=== PATIENT | male | born 1975 | race Caucasian/White ===

== ENCOUNTER 2022-03-30 19:04 | Inpatient (IN) | payer MEDICARE, MEDICAID, SELFPAY ==
[2022-03-30 19:39] VITALS: BP 127/78; PULSE 88; RESP 18; TEMP 36.7; O2SAT 97
[2022-03-30 19:42] VITALS: BMI 26.4
[2022-03-30] MEDS: trazodone 50 mg Tablet PO (20:14)
[2022-03-31 06:00] VITALS: BP 124/70; PULSE 56; RESP 20; TEMP 36.5; O2SAT 96
[2022-03-31 14:00] VITALS: BP 158/56; PULSE 80; RESP 16; TEMP 36.5; O2SAT 91
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
[2022-03-31 19:57] VITALS: BP 156/70; PULSE 66; RESP 20; TEMP 36.9; O2SAT 95
[2022-03-31 22:00] VITALS: BP 156/70; PULSE 66; RESP 20; TEMP 36.9; O2SAT 95
[2022-04-01 06:00] VITALS: BP 133/64; PULSE 63; RESP 20; TEMP 36.6; O2SAT 98
[2022-04-01] MEDS: risperiDONE 1 mg Tablet 0.5 MG PO (08:43)
[2022-04-01 14:00] VITALS: BP 120/66; PULSE 60; RESP 15; TEMP 36.8; O2SAT 97
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
[2022-04-01 18:38] VITALS: BP 142/63; PULSE 57; RESP 15; TEMP 36.6; O2SAT 96
[2022-04-01] MEDS: trazodone 50 mg Tablet PO (20:06)
[2022-04-02 06:00] VITALS: BP 116/75; PULSE 75; RESP 16; TEMP 36.6; O2SAT 99
[2022-04-02] MEDS: fixodent 39 gm Tube 1 APPLIC DENTAL (07:51)
[2022-04-02] MEDS: risperiDONE 1 mg Tablet 0.5 MG PO (09:15)
[2022-04-02 11:23] VITALS: BP 116/75; PULSE 75; RESP 16; TEMP 36.6; O2SAT 99
--- NOTE | 2022-04-02 12:12 | DCPLANNER ---
Imm was given to pt and rights explained. Copy placed in file.
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
[2022-04-02 13:47] VITALS: BP 137/71; PULSE 72; RESP 18; TEMP 36.7; O2SAT 96
--- NOTE | 2022-04-02 13:53 | PC.NURSE ---
pt requested med be transferred to [facility] in [place], [place] [phone]...this nurse contacted [facility], asked them to please call [facility] employee pharmacy @ [phone], request discharge med be transferred
[2022-04-02 14:18] VITALS: BP 137/71; PULSE 72; RESP 18; TEMP 36.7; O2SAT 96
[2022-04-02] MEDS: nicotine 2 mg Gum BUCCAL (15:24)
== END 2022-04-02 17:17 | disposition home or self-care (01) | DRG 886 ==
PROVIDERS: Admitting Provider Psychiatry & Neurology Psychiatry; PCP Specialist; Visit Provider Psychiatry & Neurology Psychiatry
DX: F63.9 Impulse disorder, unspecified (principal); R45.851 Suicidal ideations; Z87.820 Personal history of traumatic brain injury; R47.1 Dysarthria and anarthria
CPT/HCPCS: 97150; 97165

== ENCOUNTER → 2022-06-19 08:35 | Outpatient (BNVA) | payer MEDICARE, MEDICAID, SELFPAY | PROVIDERS: PCP Specialist; Visit Provider Student in an Organized Health Care Education/Training Program | DX: V19.9XXA Pedal cyclist (driver) (passenger) injured in unspecified traffic accident, initial encounter (principal); S42.001A Fracture of unspecified part of right clavicle, initial encounter for closed fracture | CPT/HCPCS: 23500; 73000; 99203 ==

== ENCOUNTER 2023-04-03 17:04 | Inpatient (IN) | payer MEDICARE, MEDICAID, SELFPAY ==
[2023-04-03 17:12] VITALS: BMI 26.4
[2023-04-03 17:15] VITALS: BP 150/72; PULSE 104; RESP 16; TEMP 36.8; O2SAT 98
[2023-04-03] MEDS: fixodent 39 gm Tube 1 APPLIC DENTAL (17:54)
[2023-04-03 20:00] VITALS: BP 114/61; PULSE 82; RESP 18; TEMP 36.6; O2SAT 93
[2023-04-04 06:00] VITALS: BP 119/72; PULSE 67; RESP 18; O2SAT 97
[2023-04-04] MEDS: fixodent 39 gm Tube 1 APPLIC DENTAL (07:18)
--- NOTE | 2023-04-04 08:06 | PC.NURSE ---
During morning assessment, patient stated that I can't drive, i can't do shit . Patient said that he has had enough and wants to walk out in front of a semi. Patient says that if he could drive, then things would be better. He can't drive because he has warrants. The last time he had a license was 20 years ago. Denies AVH, anxiety, and depression.
[2023-04-04] MEDS: hyDROXYzine 25 mg Capsule 50 MG PO (08:14)
--- NOTE | 2023-04-04 12:00 | PC.NURSE ---
Patient agitated this morning, talking on the phone with a friend. Patient pacing, walking back and forth from phone to nurse, voice raised in frustration. This nurse administered Vistaril 50mg PO. Within an hour, patient stated that he is feeling better.
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
[2023-04-04 14:00] VITALS: BP 115/62; PULSE 54; RESP 17; TEMP 37; O2SAT 94
[2023-04-04 19:58] VITALS: BP 129/61; PULSE 60; RESP 18; O2SAT 95
[2023-04-05 06:00] VITALS: BP 109/58; PULSE 49; RESP 18; O2SAT 97
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
[2023-04-05 13:43] VITALS: BP 109/58; PULSE 49; RESP 18; O2SAT 97
== END 2023-04-05 14:00 | disposition home or self-care (01) | DRG 886 ==
PROVIDERS: Admitting Provider Psychiatry & Neurology Psychiatry; Visit Provider Psychiatry & Neurology Psychiatry
DX: F63.9 Impulse disorder, unspecified (principal); R45.851 Suicidal ideations; F32.A Depression, unspecified; Z87.820 Personal history of traumatic brain injury; F10.10 Alcohol abuse, uncomplicated; F15.90 Other stimulant use, unspecified, uncomplicated; Z59.00 Homelessness unspecified; F17.200 Nicotine dependence, unspecified, uncomplicated
CPT/HCPCS: 97150; 97165; 99238

== ENCOUNTER → 2024-03-31 08:24 | Outpatient (BNVA) | payer MEDICARE, SELFPAY | DX: Z13.6 Encounter for screening for cardiovascular disorders (principal); Z76.89 Persons encountering health services in other specified circumstances | CPT/HCPCS: 80053; 80061; 85025 ==

== ENCOUNTER 2024-07-10 13:01 | Emergency (ER) | payer MEDICARE, SELFPAY ==
--- NOTE | 2024-07-10 13:02 | XRR_ITS ---
PROCEDURE INFORMATION: Exam: XR Left Hand Exam date and time: 07/10/2024 1:27 PM Age: 48 years old Clinical indication: Injury or trauma; Other: Crushing; Hand; Left TECHNIQUE: Imaging protocol: Radiologic exam of the left hand. Views: 3 or more views. COMPARISON: No relevant prior studies available. FINDINGS: Bones/joints: There is mild ulnar angulation of the distal 5th finger at the proximal interphalangeal joint which is likely chronic. There is a nondisplaced fracture of the distal 5th phalangeal tuft. Distal 5th phalangeal tuft is exposed. There is mild chronic deformity of the 5th proximal interphalangeal joint. There is mild diffuse interphalangeal, metacarpophalangeal, and triscaphe osteoarthritis. Soft tissues: There is a deep soft tissue laceration in the distal 5th finger with partial amputation of the finger tip. XR/XR hand LT min 3V* [id number] IMPRESSION: 1. Acute nondisplaced fracture of the distal 5th phalangeal tuft. 2. Partial soft tissue amputation of the 5th finger tip.
[2024-07-10 13:11] VITALS: BP 125/72; PULSE 63; RESP 20; TEMP 36.6; O2SAT 98; BMI 27.1
[2024-07-10 13:33] VITALS: BP 134/76; PULSE 63; O2SAT 93
--- NOTE | 2024-07-10 13:36 | W.ED.EXTPRO ---
HPI - Extremity Problem General: Chief complaint: Extremity Injury, Upper Stated complaint: LT hand fingertip crushing injury Time Seen by Provider: 07/10/24 13:31 Source: patient Mode of arrival: ambulatory Limitations: no limitations History of Present Illness: 48-year-old male states that he injured his left pinky finger on a wood splitter roughly an hour ago he amputated the very distal tip of his left pinky finger. He is unsure when his last tetanus was rates his pain 3-10 currently denies any other injuries Associated symptoms: Deny chest pain, fever(s) or rash Related Data Previous Rx's Medication Instructions Recorded amoxicillin 500 mg-potassium 1 tab PO BID #14 tabs 07/10/24 clavulanate 125 mg tablet (Augmentin) hydrocodone 5 mg-acetaminophen 325 1 tab PO Q6H PRN pain #14 tabs 07/10/24 mg tablet Allergies Allergy/AdvReac Type Severity Reaction Status Date / Time promethazine [From Phenergan] Allergy ADR-Itching Verified 07/10/24 13:20 Review of Systems Const: Denies: fever(s), chills, body aches or change in appetite ENMT: Denies: throat pain or dental pain Card: Denies: chest pain Resp: Denies: dyspnea GI: Denies: abdominal pain, nausea, vomiting or diarrhea Musc: Reports: extremity pain; Denies: neck pain or back pain Skin/Breast: Denies: rash Neuro: Denies: headache(s) PFSH ED PFSH: Medical History Establishing care with new doctor, encounter for Surgical History (Updated 03/31/24 @ 08:13 by Elvi Munoz NP) History of appendectomy Family History (Updated 03/31/24 @ 08:14 by Elvi Munoz NP) Mother Cancer liver Social History Smoking and tobacco/nicotine status: current every day tobacco/nicotine user Alcohol intake: current Substance/Drug Use: former Adopted: No service: No Physical Exam Const: COMMON NORMALS: no acute distress, patient oriented x3 and healthy appearing HENMT: COMMON NORMALS: normocephalic and atraumatic HEAD & SCALP: normocephalic and atraumatic Eye: COMMON NORMALS: conjunctivae normal CONJUNCTIVA: Yes conjunctivae normal Neck/C-Spine: COMMON NORMALS: full ROM and supple Chest: COMMONS NORMALS: normal inspection of the chest Resp: COMMON NORMALS: normal respiratory effort Cardio: COMMON NORMALS: regular rate, regular rhythm and No murmurs present (Cardio) RATE: regular rate RHYTHM: regular rhythm Extremity: NARRATIVE EXTREMITY EXAM: Amputation of the very distal tip of left index finger bleeding controlled Neuro: COMMON NORMALS: patient oriented x3, moves all extremities and no focal motor deficits Psych: COMMON NORMALS: mental status grossly normal, Normal thought process present and cooperative THOUGHT PROCESS: Normal thought process present Skin: COMMON NORMALS: no rashes or lesions noted and no wounds GENERAL SKIN EXAM: no rashes or lesions noted Course Vital Signs: Vital signs: Vital Signs Temperature 97.8 F 07/10/24 13:11 Pulse Rate 63 07/10/24 13:33 Respiratory Rate 20 H 07/10/24 13:11 Blood Pressure 134/76 07/10/24 13:33 Pulse Oximetry 93 07/10/24 13:33 Oxygen Delivery Me thod Room Air 07/10/24 13:33 MDM - Extremity (Nontraumatic) Medical Decision Making Patient presents here with amputation of very distal tip of his left pinky finger did speak to orthopedist will dress here place in splint placed on antibiotics we will get follow-up with Dr. Rosales for further treatment. Medical Records I reviewed the patient's medical records. Lab Data I reviewed the patient's lab results. All radiology interpretation(s) finalized by discharge Discharge Plan Discharge Patient Disposition: Home Clinical Impression: Amputation of finger of left hand Qualifiers: Encounter type: initial encounter Qualified Code(s): S68.119A - Complete traumatic metacarpophalangeal amputation of unspecified finger, initial encounter Condition: Stable Prescriptions: New amoxicillin-pot clavulanate [Augmentin] 500-125 mg tablet 1 tab PO BID Qty: 14 0RF hydrocodone-acetaminophen 5-325 mg tablet 1 tab PO Q6H PRN (Reason: pain) Qty: 14 0RF Discharge Orders: Discharge ED (Routine); Ordered 07/10/24 Ordered By: Jaqui Ramirez Discharge Diet: Advance as tolerated Discharge Activity: Resume usual activity Patient Instructions: Finger Amputation (ED) Coding Level of Care Code ED Atomic Spectroscopist for Mariam Mckeon
[2024-07-10] MEDS: ondansetron 2 mg/ML SDV 2 mL 4 MG IVP (14:04)
[2024-07-10 14:05] VITALS: RESP 16
[2024-07-10] MEDS: morphine 4 mg/mL SDV 1 mL IVP (14:05)
[2024-07-10] MEDS: tetanus-dipt-pertussis 0.5 mL SDV IM (14:07)
[2024-07-10] MEDS: ceFAZolin 2,000 mg SDV 2000 MG IVP (14:11)
[2024-07-10 14:27] VITALS: BP 135/83; PULSE 58; O2SAT 93
[2024-07-10 14:32] VITALS: BP 135/83; PULSE 58; O2SAT 93
--- NOTE | 2024-07-11 13:28 | DCPLANNER ---
Message sent to Ortho for follow up on Left finger amputation.
== END 2024-07-10 14:33 | disposition home or self-care (01) ==
PROVIDERS: Emergency Provider Emergency Medicine
DX: S68.117A Complete traumatic metacarpophalangeal amputation of left little finger, initial encounter (principal); X58.XXXA Exposure to other specified factors, initial encounter; Z72.0 Tobacco use
CPT/HCPCS: 73130; 90471; 90715; 96374; 96375; 99284; J0690; J2270; J2405

== ENCOUNTER 2024-07-13 12:42 | Emergency (ER) | payer MEDICARE, SELFPAY ==
[2024-07-13 12:45] VITALS: BP 155/73; PULSE 66; RESP 18; TEMP 36.6; O2SAT 100; BMI 27.1
== END 2024-07-13 14:35 | disposition left against medical advice (07) ==
PROVIDERS: Emergency Provider Family Medicine
DX: Z53.21 Procedure and treatment not carried out due to patient leaving prior to being seen by health care provider (principal)

== ENCOUNTER → 2024-07-14 08:41 | Outpatient (BNVA) | payer MEDICARE, SELFPAY | PROVIDERS: Visit Provider Specialist | DX: S68.116A Complete traumatic metacarpophalangeal amputation of right little finger, initial encounter; X58.XXXA Exposure to other specified factors, initial encounter; Z53.8 Procedure and treatment not carried out for other reasons; R41.82 Altered mental status, unspecified; S06.9X9A Unspecified intracranial injury with loss of consciousness of unspecified duration, initial encounter | CPT/HCPCS: 73130; 80053; 80306; 81001; 85025; 99205 ==

== ENCOUNTER 2024-07-18 13:44 | Day surgery (SDC) | payer MEDICARE, SELFPAY ==
[2024-07-18 14:20] VITALS: BP 135/75; PULSE 60; RESP 16; TEMP 36.4; O2SAT 97
[2024-07-18 14:21] VITALS: BMI 27.1
[2024-07-18 15:04] LABS: Amphetamines Screen Urine Positive (Negative); Barbiturates Screen Urine Negative (Negative); Benzodiazepines Screen Urine Negative (Negative); Cocaine Screen Urine Negative (Negative); Opiate Screen Urine Negative (Negative); PCP Screen Urine Negative (Negative); THC Screen Urine Positive (Negative)
[2024-07-18] MEDS: CELEcoxib 200 mg Capsule 400 MG PO (15:04)
[2024-07-18] MEDS: acetaminophen 1,000 MG/100 ML PIGGYBACK 400 MG IV (15:04)
[2024-07-18] MEDS: gabapentin 300 mg Capsule PO (15:05)
[2024-07-18] MEDS: sodium chloride 0.9% 1,000 ML 30 ML IV (15:08)
--- NOTE | 2024-07-18 15:38 | SUR.PREOP ---
15:30 DOCTOR JOLLY IN TO TALK WITH PATIENT AND FAMILY. SURGERY TO BE RE-SCHEDULED AT A LATER DATE.. FINGER WOUND CLEANED AND NEW DRESSING APPLIED.
--- NOTE | 2024-07-18 15:50 | PM.MISC ---
Miscellaneous Note Purpose of Documentation: Cancellation of surgical procedure Note: Patient presented today for surgical intervention. Drug screen was positive for amphetamine as well as for marijuana. After discussion with anesthesia, the surgical procedure was canceled. We will make referral to wound care in hopes of avoiding the need for surgical intervention.
--- NOTE | 2024-07-18 15:56 | SUR.PREOP ---
15:55 DRESSING APPLIED BY DEANNE TREJO
== END 2024-07-18 16:25 | disposition home or self-care (01) ==
PROVIDERS: Visit Provider Specialist
PROC: (CPT 26951; principal; 2024-07-18 16:15)
DX: Z53.8 Procedure and treatment not carried out for other reasons (principal)
CPT/HCPCS: 80306; J0131; J7030

== ENCOUNTER → 2024-07-25 08:15 | Outpatient (BNVA) | payer MEDICARE, SELFPAY | PROVIDERS: Visit Provider Thoracic Surgery (Cardiothoracic Vascular Surgery) | DX: I96 Gangrene, not elsewhere classified (principal); S67.197A Crushing injury of left little finger, initial encounter; S61.217A Laceration without foreign body of left little finger without damage to nail, initial encounter; X58.XXXA Exposure to other specified factors, initial encounter | CPT/HCPCS: 11044; 99213 ==